=== PATIENT | male | born 1945 | race Caucasian/White ===

== ENCOUNTER 2017-11-28 06:52 | Day surgery (SDC) | payer MEDICARE, OTHER ==
[2017-11-27 13:22] VITALS: BMI 34.9
[~2017-11-28 06:52] MED LIST: FLU VACC TS2017-18 (>65YR) 0.5 ML SYRINGE IM ONE
[2017-11-28 08:18] VITALS: BP 155/82; TEMP 96.9
--- NOTE | 2017-11-28 09:17 | RAD ---
CERVICAL SPINE 4 VIEW MINIMUM: HISTORY: Cervical spondylosis with myelopathy. COMPARISON: Cervical spine radiographs 2016. FINDINGS: There is ACDF hardware at C4-5 and C6-7. There is mild degenerative disk space height loss at C5-6, similar. Moderate degenerative disk space disease at C3-4. Moderate facet arthropathy at C2-C5. No translation with flexion or extension. No significant listhesis. There is no evidence of hardwar e failure. The disk cages are in similar position. IMPRESSION: Similar appearance of the surgical changes of the cervical spine without evidence of translation with flexion or extension. POS: [facility]
--- NOTE | 2017-11-28 09:33 | RAD ---
LUMBAR SPINE FOUR VIEWS: History: 72-year-old male with history of gait difficulty, leg paraesthesia and low back pain. Comparison: 07-02-16 FINDINGS: Generalized disc osteophytosis and facet arthrosis. No evidence for fracture or dislocation or signif icant malalignment. No abnormal translation between flexion and extension. IMPRESSION: Lumbar spondylosis. Stable from prior study. No abnormal translation between flexion and extension. POS: [facility]
--- NOTE | 2017-11-28 10:48 | CT ---
CT CERVICAL SPINE WITH INTRATHECAL CONTRAST: Date: 11/28/17 HISTORY: Radiculopathy. COMPARISON: Cervical spine myelogram dated 06/3016. TECHNIQUE: CT cervical spine performed after intrathecal administration of contrast. FINDINGS: There is extensive degenerative disease of the anterior atlantodental joint. The atlanto-occipital travis ints are normal. The paraspinal soft tissues are unremarkable. The thyroid has a few calcifications in the right lobe. Lung apices are clear. There is ACDF hardware at C4-5 with diskectomy changes. There is also ACDF hardware at C6-7 with disk ectomy changes. Levels are as follows: C2-3: Mild degenerative disc space height loss. There is moderate facet arthrosis. There is moderate bilate ral neural foraminal narrowing, predominantly due to facet hypertrophic changes. The spinal canal at this level measures 1.0 cm. C3-4: There is a posterior disc osteophyte complex as well as uncinate process hypertrophy. Moderate facet arthropathy. There is moderate bilateral neural foraminal narrowing. The posterior disc osteophyte co mplex narrows the spinal canal to approximately 8.0 mm. There is a large anterior osteophyte. C4-5: Diskectomy changes. Posterior osteophyte, left paracentral, impinging upon the spinal canal narrowing the ventral CSF space. Centrally, there is no narrowing. There is some moderate to severe left-sided neural foraminal narrowing due to uncinate process hypertrophy and posterior osteophyte. C5-6: Moderate uncinate process hypertrophy. There is a circumferential disc bulge. This causes narrowing o f the spinal canal to approximately 7.0 mm. Only mild facet arthrosis. There is mild left and moderat e right side neural foraminal narrowing. C6-7: Fusion changes. Mild facet arthrosis. The spinal canal measures 9.0 mm. Mild uncinate process hypertr ophy. Mild bilateral neural foraminal narrowing. IMPRESSION: Mild to moderate spondylosis as described above, worse at C3-4 and C4-5. The left C4-5 causes moderat e left hemicord compromise, which is similar to the comparison exam to slightly worsened. POS: [facility]
--- NOTE | 2017-11-28 10:49 | CT ---
CT MYELOGRAM: INDICATION: Concern for neurological claudication. The patient's feet had been falling asleep. When he wakes up he has difficulty walking. TECHNIQUE: Multiple CT images were obtained of the lumbar spine following intrathecal administration of contrast solution. The please see the separately dictated myelogram for details concerning the injection disha hnique. Exam is compared to a prior dated 07/02/2016. FINDINGS: There is a stable 2.6 cm peripelvic cyst in the right kidney. There is intradiskal vacuum disk phenomenon at L5-S1 likely related to some disk instability. There is a stable broad-based disk-osteophyte complex with facet osteoarthrosis at L5-S1 in addition to the disk-osteophyte complex inducing stable moderate bilateral osseous neural foraminal narrowing. At L4-5 level, there is a stable broad-based disk bulge with prominent facet osteoarthrosis inducing mild central canal narrowing. There is some stable mild encroachment of the broad-based disk bulge o n the traversing right L5 nerve root within the subarticular recess best seen on image 78 of series 5 . There is no definite impingement noted. At L3-4, there is a stable broad-based bulge with facet hypertrophy and ligamentum flavum hypertrophy inducing stable mild bilateral neural foraminal narrowing and mild central canal narrowing. At L2-3, there is a broad-based disk-osteophyte complex and facet joint degenerative change inducing stable mild bilateral neural foraminal narrowing, moderate left, and mild right neural foraminal narr owing. There is also central canal narrowing at this level. At L1-L2 level, there is a broad-based bulge and facet hypertrophy without appreciable central canal or neural foraminal narrowing. At T12-L1, there is no appreciably central canal or neural foraminal narrowing. At T11-T12, there is no appreciable central canal or neural foraminal narrowing. IMPRESSION: 1. Stable mild central canal narrowing seen at the L2-3, L3-4, and L4-5 levels. The broad-based bul ge at L4-5 is slightly asymmetric to the right and causes stable moderate narrowing of the subarticul ar right lateral recess at L4-5 with potential for contract of the traversing right L5 nerve root wit hout definite impingement. 2. Stable moderate left and mild right neural foraminal narrowing at L2-3. Stable mild bilateral ne ural foraminal narrowing is seen at L3-4 through L4-L5. There is stable moderate bilateral neurofora jadyn narrowing at L5-S1. 4. There is a stable 2.6 cm cyst involving the right mid kidney. POS: [facility]
--- NOTE | 2017-11-28 10:52 | CT ---
CT THORACIC SPINE MYELOGRAM: Date: 11/28/17 INDICATION: Neurological claudication with neck and back pain. Patient feels weak and does to sleep and when he w akes up he has difficulty walking. TECHNIQUE: Multiple CT images were obtained of the thoracic spine following intrathecal administration of contra st. Please see separately dictated myelogram for details concerning injection technique. FINDINGS: There is stable rounded atelectasis within the left lower lobe. There is stable pleural thickening in volving the left lung base. There is multilevel disc degenerative disease and facet osteoarthritic change of the lumbar spine. Th ere is no appreciable central canal or neural foraminal narrowing for definite cord compression. Ther e has been interval postsurgical change when compared to the prior dated 07/02/16 consistent with an ACDF at C6-7. There is partial visualization of pacemaker leads overlying left chest wall. IMPRESSION: 1. Stable moderate multilevel spondylosis of the thoracic spine without appreciable central canal or neural foraminal narrowing. No acute fracture is demonstrated. 2. Interval ACDF at C6-7. 3. Persistent rounded atelectasis in the left lower lobe. POS: [facility]
--- NOTE | 2017-11-28 14:39 | RAD ---
MYELOGRAM: HISTORY: Cervical spondylosis. Gait difficulty. Pain. COMPARISON: Myelogram from 07/02/2016. TECHNIQUE: The patient was brought to the fluoroscopy suite. All questions were answered. The back was prepped and draped in the normal sterile fashion. A time out was performed. Informed c onsent was already obtained. Lidocaine 4 mL was instilled into the superficial and deep soft tissues. A 6 cm, 22 gauge needle was inserted into the thecal sac. Clear CSF was seen. Isovue-300 12 mL was instilled into the thecal s ac. IMPRESSION: Technically successful fluoroscopic guided myelogram. POS: [facility]
== END 2017-11-28 10:50 | disposition home or self-care (01) ==
LOC: RAD 06:52
PROVIDERS: ATTEND Physician Assistant Surgical
PROC: B00B1ZZ Plain Radiography of Spinal Cord using Low Osmolar Contrast (ICD-10-PCS; principal; 2017-11-28)
DX: M47.22 Other spondylosis with radiculopathy, cervical region (principal); R26.9 Unspecified abnormalities of gait and mobility; M10.9 Gout, unspecified; I10 Essential (primary) hypertension; I48.91 Unspecified atrial fibrillation; I34.0 Nonrheumatic mitral (valve) insufficiency; G47.30 Sleep apnea, unspecified; D64.9 Anemia, unspecified; I35.0 Nonrheumatic aortic (valve) stenosis; E78.5 Hyperlipidemia, unspecified; I42.9 Cardiomyopathy, unspecified; I25.10 Atherosclerotic heart disease of native coronary artery without angina pectoris; I70.213 Atherosclerosis of native arteries of extremities with intermittent claudication, bilateral legs; Z79.82 Long term (current) use of aspirin; Z79.899 Other long term (current) drug therapy; Z98.1 Arthrodesis status; Z95.0 Presence of cardiac pacemaker; Z95.1 Presence of aortocoronary bypass graft; Z90.79 Acquired absence of other genital organ(s); Z90.49 Acquired absence of other specified parts of digestive tract; Z98.890 Other specified postprocedural states; Z85.46 Personal history of malignant neoplasm of prostate
CPT/HCPCS: 62305; 72050; 72120; 72126; 72129; 72132

== ENCOUNTER 2018-02-10 09:14 | Outpatient (CLI) | payer MEDICARE, OTHER ==
--- NOTE | 2018-02-10 11:16 | CT ---
CT CHEST WITHOUT CONTRAST: HISTORY: Rounded atelectasis followup. COMPARISON: 02/11/17. FINDINGS: Absence of IV contrast reduced the sensitivity of exam, particularly for evaluation of mediastinal, h ilar, and vascular structures. Vascular calcifications are present without evidence of aneurysmal dilatation of the thoracic aorta. No pleural or pericardial effusions are identified. No parenchymal lung nodules or masses are noted . The rounded atelectasis in the left lower lobe with adjacent pleural thickening is stable. Cholelithiasis, calcified granulomas in the liver, and degenerative changes in the spine are again se en. IMPRESSION: Stable exam. POS: [facility]
== END 2018-02-10 09:15 | disposition home or self-care (01) ==
LOC: CT 09:14
PROVIDERS: ATTEND Internal Medicine Critical Care Medicine
DX: J98.11 Atelectasis (principal)
CPT/HCPCS: 71250

== ENCOUNTER 2018-07-16 10:34 | Outpatient (CLI) | payer MEDICARE, OTHER ==
[2018-07-16 12:51] LABS: Mean Corpuscular Hemoglobin 33.6 pg (27.0-31.0); Mean Platelet Volume 9.9 fL (7.4-10.4); Platelet Count 95 thou/uL (130-400); RBC Distribution Width 13.5 % (11.5-14.5); Red Blood Cell (RBC) Count 4.48 mill/uL (4.70-6.10); White Blood Cell (WBC) Count 5.6 thou/uL (4.8-10.8)
[2018-07-16 12:57] LABS: Anion Gap 14 mmol/L (10-20); BUN (Urea Nitrogen) 37 mg/dL (8.4-25.7); Calc. Creatinine Clearance 0 mL/min (70-130); Calcium 9.6 mg/dL (7.8-10.44); Carbon Dioxide 26 mmol/L (23-31); Chloride 100 mmol/L (98-107); Estimated GFR-MDRD 39; Glucose 96 mg/dL (83-110); INR-International Normal Ratio 1.1; PTT 34.9 SEC (22.9-36.1); Potassium 4.7 mmol/L (3.5-5.1); Prothrombin Time 14.3 SEC (12.0-14.7); Sodium 135 mmol/L (136-145)
== END 2018-07-16 10:35 | disposition home or self-care (01) ==
LOC: LABBT 10:34
PROVIDERS: ATTEND Surgery
DX: Z01.818 Encounter for other preprocedural examination (principal); M48.061 Spinal stenosis, lumbar region without neurogenic claudication; M54.16 Radiculopathy, lumbar region
CPT/HCPCS: 80048; 85027; 85610; 85730; 93005; 93010

== ENCOUNTER 2018-07-23 07:24 | Day surgery (SDC) | payer MEDICARE, OTHER ==
[2018-07-23] MEDS ORDERED: Sodium Chloride 0.9% 10 ML ONE (07:49)
[2018-07-23] MEDS ORDERED: Bacitracin Zinc Ointment 30 gm TUBE ONE (07:50)
[2018-07-23] MEDS ORDERED: Thrombin 5000 UNITS/5 ML VIAL ONE (07:50)
[2018-07-23] MEDS ORDERED: CEFAZOLIN/Water 2 GM/20 ML SYRINGE ONE (08:06)
[2018-07-23] MEDS ORDERED: Fentanyl 250 MCG/5 ML VIAL ONE (08:36)
[2018-07-23] MEDS ORDERED: Phenylephrine HCL 10 MG/ML VIAL ONE (08:50)
[2018-07-23] MEDS ORDERED: Norepinephrine 4 MG/4 ML VIAL ONE (08:50)
[2018-07-23] MEDS ORDERED: Rocuronium Bromide 50 MG/5 ML VIAL ONE (09:43)
[2018-07-23] MEDS ORDERED: PHENYLEPHRINE-NS 100 MCG/ML 10 ML SYRINGE ONE ×3 (10:32→14:22)
[2018-07-23] MEDS ORDERED: ePHEDrine/0.9% NaCl/PF SYRINGE 50 mg/10 ml ONE ×2 (11:22→14:22)
--- NOTE | 2018-07-23 12:02 | OP ---
DATE OF PROCEDURE: 07/23/2018 LOCATION: OR 12. WOUND TYPE: Type 1 wound. SURGEON: Farooq Copeland M.D. HYDRAULIC TESTER: Rahat Miramontes PA-C. PREPROCEDURE DIAGNOSES: Multilevel lumbar stenosis, low back and leg pain. POSTPROCEDURE DIAGNOSES: Multilevel lumbar stenosis, low back and leg pain. PROCEDURES: L2-L3, L3-L4, L4-L5, L5-S1 laminectomies, partial facetectomies and foraminotomies over the L2, L3, L4, L5, S1 nerve roots. DESCRIPTION OF PROCEDURE: After informed consent was obtained, the patient brought to OR 12. Proper patient pause and identification was carried out. He was placed under excellent general endotrachea l anesthesia and positioned prone on the OR table. All appropriate points were padded. We then tay out a linear cynthia in this region and it was sterilely cleansed, prepared, and draped. Proper patien t pause and the identification were carried out. The wound was then opened in a combination of sharp , monopolar and blunt dissection. The L2, L3, L4, L5, S1 dorsal spines lamina were exposed. We then performed localization film, L2, L3, L4, L5, S1 laminectomies, partial facetectomies and foraminotom ies were performed with excellent decompression of the common dural tube and the L2, L3, L4, L5 and S 1 nerve roots bilaterally along with the common dural tube. Copious irrigation occurred throughout a s did maximizing hemostasis. The wound was then closed in anatomic layers following the sprinkling o f vancomycin powder. The patient then emerged from anesthesia. There was no CSF leak.
[2018-07-23] MEDS ORDERED: Ondansetron HCl/PF 4 MG/2 ML Vial IVP PRN (12:11)
[2018-07-23] MEDS ORDERED: HYDROmorphone 2 MG/ML VIAL SLOW IVP PRN (12:11)
[2018-07-23] MEDS ORDERED: Promethazine HCl 25 MG/ML VIAL SLOW IVP PRN (12:11)
[2018-07-23] MEDS ORDERED: Promethazine HCl 25 MG/ML VIAL IM PRN ×2 (12:11→12:30)
[2018-07-23] MEDS ORDERED: Bisacodyl 10 MG SUPP PR PRN (12:30)
[2018-07-23] MEDS ORDERED: Fleet Enema 133 ML BOT PR PRN (12:30)
[2018-07-23] MEDS ORDERED: Acetaminophen 325 MG TAB PO PRN (12:30)
[2018-07-23] MEDS ORDERED: Mag-Al 1200 mg/1200 mg/30 ML UDCUP PO PRN (12:30)
[2018-07-23] MEDS ORDERED: Milk Of Magnesia 30 ML UDCUP PO PRN (12:30)
[2018-07-23] MEDS ORDERED: Acetaminophen/Codeine 30-300mg Tablet PO PRN (12:30)
[2018-07-23] MEDS ORDERED: traMADol HCl 50 MG TAB PO PRN (12:30)
[2018-07-23] MEDS ORDERED: Fentanyl 100 MCG/2 ML VIAL ONE ×2 (13:01→14:28)
[2018-07-23] MEDS ORDERED: Dexamethasone 20 MG/5 ML VIAL ONE (14:22)
[2018-07-23] MEDS ORDERED: Ondansetron HCl/PF 4 MG/2 ML Vial ONE (14:22)
[2018-07-23] MEDS ORDERED: Lidocaine 1% PF 5 ML VIAL ONE (14:22)
[2018-07-23] MEDS ORDERED: PROPOFOL 200 MG/20 ML VIAL ONE (14:22)
[2018-07-23] MEDS ORDERED: Glycopyrrolate 0.2 MG/ML 5 ML SYRINGE ONE (14:22)
[2018-07-23] MEDS: Sodium Chloride 0.9% 1,000 ML IV SCH (15:51)
[2018-07-23] MEDS: HYDROcodone/Acetaminophen 7.5/325 mg Tablet PO PRN ×2 (16:23→21:03)
[2018-07-23] MEDS: tiZANidine HCl 4 MG TAB PO PRN (16:25)
[2018-07-23] MEDS: CEFAZOLIN/Water 2 GM/20 ML SYRINGE SLOW IVP SCH (18:00)
[2018-07-23 20:04] VITALS: BMI 37.2
[2018-07-23] MEDS: Carvedilol 6.25 MG TAB PO SCH (21:02)
[2018-07-24] MEDS: HYDROcodone/Acetaminophen 7.5/325 mg Tablet PO PRN (00:34)
[2018-07-24] MEDS: CEFAZOLIN/Water 2 GM/20 ML SYRINGE SLOW IVP SCH (00:34)
[2018-07-24] MEDS: Sodium Chloride 0.9% 1,000 ML IV SCH (01:30)
[2018-07-24] MEDS: tiZANidine HCl 4 MG TAB PO PRN (03:34)
[2018-07-24] MEDS ORDERED: Hydrochlorothiazide 25 MG TAB PO SCH (09:00)
[2018-07-24] MEDS ORDERED: Pregabalin 75 MG CAP PO SCH (09:00)
[2018-07-24] MEDS ORDERED: Lisinopril 20 MG TAB PO SCH (09:00)
[2018-07-24] MEDS ORDERED: Allopurinol 300 MG TAB PO SCH (09:00)
[2018-07-24] MEDS ORDERED: Furosemide 40 MG TAB PO SCH (09:00)
--- NOTE | 2018-07-24 09:48 | PRG ---
DATE OF SERVICE: 07/24/2018 He is postoperative day 1 from L2-S1 laminectomy, partial facetectomy, foraminotomies. He has had re solution in his leg pain. He feels as if he is doing very well. I have counseled him on the benefic ial effects of weight loss in regards to his spinal issues. There have been no issues with his wound and neurologically he has done well. We went over both intra and postoperative issues, he may be di smissed.
[2018-07-24] MEDS: Carvedilol 6.25 MG TAB PO SCH (11:08)
[2018-07-24 11:39] VITALS: TEMP 97.7
[2018-07-24 12:22] VITALS: BP 115/68
== END 2018-07-24 13:44 | disposition home or self-care (01) ==
LOC: SDC 07:24 → SJJU 15:45 → SDC 07-24 13:44
PROVIDERS: ATTEND Surgery
PROC: 01NB0ZZ Release Lumbar Nerve, Open Approach (ICD-10-PCS; principal; 2018-07-23)
DX: M48.062 Spinal stenosis, lumbar region with neurogenic claudication (principal); M54.16 Radiculopathy, lumbar region; Z79.82 Long term (current) use of aspirin; Z79.899 Other long term (current) drug therapy
CPT/HCPCS: 76001; 96374; 96375; 96376; A4216; J0131; J1100; J2001; J2370; J2405; J2704; J3010; J3370; J3490

== ENCOUNTER 2020-01-07 09:00 | Day surgery (SDC) | payer MEDICARE, OTHER ==
[2020-01-05 15:59] VITALS: BMI 36.2
[2020-01-07] MEDS ORDERED: Lidocaine 1% PF 5 ML VIAL ONE (09:22)
[2020-01-07] MEDS ORDERED: Ondansetron PF 4 MG/2 ML Vial ONE (09:22)
[2020-01-07] MEDS ORDERED: PHENYLEPHRINE-NS 100 MCG/ML 10 ML SYRINGE ONE (09:22)
[2020-01-07] MEDS ORDERED: Dexamethasone 20 MG/5 ML VIAL ONE (09:22)
[2020-01-07] MEDS ORDERED: PROPOFOL 200 MG/20 ML VIAL ONE (09:22)
[2020-01-07] MEDS ORDERED: Fentanyl 100 MCG/2 ML VIAL ONE (12:03)
[2020-01-07] MEDS ORDERED: Bupivacaine PF 0.5% 30 ML VIAL ONE (13:03)
--- NOTE | 2020-01-07 14:53 | OP ---
DATE OF PROCEDURE: 01/07/2020 PREOPERATIVE DIAGNOSIS: Painful Left total knee, painful patellofemoral joint POSTOPERATIVE DIAGNOSIS: Same PROCEDURE PERFORMED: 1. Left Knee arthroscopy with debridement and shaving 2. Left knee lateral release LODGE OFFICER: None. ESTIMATED BLOOD LOSS: Minimal. COMPLICATIONS: None. ANESTHESIA: He did have a general anesthetic. DISPOSITION: He went to recovery room in stable condition. INDICATIONS: This is a 74-year-old male who three years ago had a left total knee replacement performed. He has continued to have some anterior knee pain and some pain localized medially and this has failed to relieve itself a time and at this time, he wishes to have the left knee scoped and lateral release performed and any other indicated procedures. DESCRIPTION OF PROCEDURE: After all appropriate consent forms were explained and signed, he was taken to the operative room and at this time was given general anesthetic. Once the level of anesthesia was appropriate, a tourniquet was placed on the left thigh. Leg was placed in arthroscopic leg spence. The limb was then prepped and draped in standard surgical fashion. The limb was exsanguinated and tourniquet was taken up to 300 mmHg. Inferolateral portal was established. Scope was placed into the knee joint. A needle localization technique was then used to make a medial portal. Immediately, we were in the notch, the cam and post mechanism were intact. There was some wear at the top of the post. The metal itself looked good. In the medial compartment, there was a significant amount of scar tissue, which was noted to be inside that compartment, almost as if there was a meniscus there. This was carefully removed in its entirety using the SERFAS energy as well as a shaver to clean this out, so there was no longer any tissue coming into the medial compartment. Again, this was one area where the patient had a significant amount of pain. The gutter was then evaluated and found to be clean. We switched the camera over and laterally, we did have some scar tissue as well, and it was not near as copious as the medial compartment. This was debrided just in case this was causing him problems. Again, the gutters were swept through, no loose bodies were noted. Patellofemoral joint was then evaluated. There was no significant amount of tissue to be giving this patient a Clunk syndrome in the suprapatellar pouch. There was some frayed scar tissue around the medial aspect of the patella itself, obviously being careful not to damage the plastic shaver and the SERFAS energy was used to get rid of this. We then switched the camera back over to the medial portal. We placed a needle on the superolateral aspect of the patella and went about performing a lateral release using the SERFAS energy. This was first used on coag followed by cut and we did release the patella with a lateral release such that there was a large bulge of fluid seen laterally underneath the skin. This was taken down to the portal. Once this was done, we switched the camera back over laterally. Again, we debrided any tissue remaining as we went through the knee one more time and once we were confident there was nothing else to do, scope was removed. Knee was drained. We did close each portal with a Vicryl followed by nylon, and a bulky sterile dressing was then applied. The patient was then awakened. He was taken to recovery room in stable condition. All counts were correct at the end of the case and he did receive preoperative IV antibiotics. Job ID: [id number] [facility]
== END 2020-01-07 15:15 | disposition home or self-care (01) ==
LOC: SDC 09:00
PROVIDERS: ATTEND Orthopaedic Surgery
PROC: 0MNP4ZZ Release Left Knee Bursa and Ligament, Percutaneous Endoscopic Approach (ICD-10-PCS; principal; 2020-01-07)
PROC: 0SBD4ZZ Excision of Left Knee Joint, Percutaneous Endoscopic Approach (ICD-10-PCS; 2020-01-07)
DX: M25.562 Pain in left knee (principal); M10.9 Gout, unspecified; E78.5 Hyperlipidemia, unspecified; I11.0 Hypertensive heart disease with heart failure; I50.9 Heart failure, unspecified; I25.10 Atherosclerotic heart disease of native coronary artery without angina pectoris; I48.91 Unspecified atrial fibrillation; I25.2 Old myocardial infarction; Z79.82 Long term (current) use of aspirin; Z79.899 Other long term (current) drug therapy; Z95.0 Presence of cardiac pacemaker; Z95.1 Presence of aortocoronary bypass graft; Z98.1 Arthrodesis status; Z96.641 Presence of right artificial hip joint
CPT/HCPCS: J0690; J3010; S0020

== ENCOUNTER 2020-01-17 20:30 | Outpatient (CLI) | payer MEDICARE, OTHER | END 2020-01-17 20:31 | disposition home or self-care (01) | LOC: SLEEPLAB 20:30 | PROVIDERS: ATTEND Family Medicine | DX: G47.33 Obstructive sleep apnea (adult) (pediatric) (principal); G47.10 Hypersomnia, unspecified; I10 Essential (primary) hypertension; G47.00 Insomnia, unspecified; I48.91 Unspecified atrial fibrillation | CPT/HCPCS: 95811 ==